=== PATIENT | female | born 1945 | race Hispanic/Latino ===

== ENCOUNTER 2020-03-08 21:54 | Inpatient (IN) | payer MEDICARE, MEDICAID, OTHER ==
[~2020-03-08 21:54] MED LIST: Iopamidol 370 76% 100 ML VIAL ONE
[2020-03-08] MEDS ORDERED: Dexamethasone 10 MG/ML VIAL ONE (22:11)
[2020-03-08] MEDS ORDERED: Aspirin 325 MG TAB ONE (22:11)
[2020-03-08] MEDS ORDERED: cefTRIAXone\\ROCEPHIN 1 GM VIAL ONE (22:11)
[2020-03-08] MEDS ORDERED: Azithromycin 500 MG VIAL ONE (22:11)
[2020-03-08] MEDS ORDERED: Acetaminophen 500 MG TAB ONE (22:11)
[2020-03-08 22:39] LABS: #Eosinphils 0.1 thou/uL (0.0-0.7); #Lymphocytes 0.5 thou/uL (1.20-3.40); #Monocytes 0.6 thou/uL (0.11-0.59); #Neutrophils 6.8 thou/uL (1.40-6.50); %Basophils 0.1 % (0.0-1.0); %Eosinophils 1.2 % (0.0-10.0); %Lymphocytes 6.4 % (21.0-51.0); %Monocytes 7.3 % (0.0-10.0); %Neutrophils 85.1 % (42.0-75.0); Hemoglobin 13.9 g/dL (12.0-16.0); Mean Corpuscular HGB CONC 31.2 g/dL (32.0-36.0); Mean Corpuscular Hemoglobin 30.2 pg (27.0-31.0); Mean Corpuscular Volume 96.7 fL (78.0-98.0); Mean Platelet Volume 9.7 fL (7.4-10.4); Platelet Count 211 thou/uL (130-400); RBC Distribution Width 12.6 % (11.5-14.5)
[2020-03-08] MEDS ORDERED: Albuterol 200 PUFF (6.7GM INHALER) ONE (22:41)
[2020-03-08 23:14] LABS: ALT (SGPT) 18 U/L (8-55); AST (SGOT) 38 U/L (5-34); Albumin 3.5 g/dL (3.4-4.8); Alkaline Phosphatase 82 U/L (40-110); Anion Gap 15 mmol/L (10-20); BUN (Urea Nitrogen) 16 mg/dL (9.8-20.1); Bilirubin, Total 0.6 mg/dL (0.2-1.2); CK (CPK) 38 U/L (29-168); Calc. Creatinine Clearance 0 mL/min (70-130); Calcium 9.2 mg/dL (7.8-10.44); Carbon Dioxide 27 mmol/L (23-31); Chloride 102 mmol/L (98-107); Estimated GFR-MDRD 69; Globulin 4.3 g/dL (2.4-3.5); Glucose 115 mg/dL (83-110); Potassium 4.5 mmol/L (3.5-5.1); Protein, Total 7.8 g/dL (6.0-8.3); Sodium 139 mmol/L (136-145)
[2020-03-09] MEDS ORDERED: Ondansetron PF 4 MG/2 ML Vial IVP PRN (00:27)
[2020-03-09] MEDS ORDERED: HYDROcodone/Acetaminophen 5/325 mg Tablet PO PRN (00:27)
[2020-03-09] MEDS ORDERED: Calcium Carbonate 500 MG ChewTAB PO PRN (00:27)
[2020-03-09] MEDS ORDERED: Ondansetron ODT 4 MG TAB PO PRN (00:27)
[2020-03-09] MEDS ORDERED: Acetaminophen 650 MG Suppository PR PRN (00:27)
--- NOTE | 2020-03-09 00:36 | PDOC.HHP ---
Hospitalist HPI - History of Present Illness dyspnea throat pain History of Present Illness: Case of an 74y/o female with pmhx of bronchial asthma, hypercholesterolemia, hypertension and cad who comes to hospital due to worsening dypsnea and cough. patient refers she was on her usual state of health until february 24 when she started with cough fever and dyspnea, she was evaluated by and ED and sent home. she was informed it was positive 2 days later. patient states that since then she feels she has been worsening and now presents with worsening dyspnea. also complains of headache, throat pain general malaise and fever. Hospitalist ROS - Review of Systems All other systems reviewed; all pertinent +/- noted in HPI/Subj Hospitalist History - Past Surgical History Past Surgical History: reports: Cholecystectomy, Hysterectomy - Family History Family History: reports: diabetes mellitus, hypertension - Social History Smoking Status: Never smoker Alcohol: reports: None Drugs: reports: none Living Situation: With Family - Exam General Appearance: ill appearing Eye: PERRL, anicteric sclera ENT: normocephalic atraumatic, no oropharyngeal lesions Neck: supple, symmetric, no JVD, no thyromegaly Heart: RRR, no murmur, no gallops, no rubs Respiratory: CTAB, no wheezes, no rales, no ronchi Gastrointestinal: soft, non-tender, non-distended, normal bowel sounds Extremities: no cyanosis, no clubbing, no edema Skin: normal turgor, no lesions, no rashes Neurological: cranial nerve grossly intact, normal sensation to touch, no weakness Musculoskeletal: normal tone, normal strength, no muscle wasting Psychiatric: normal affect, normal behavior, A&O x 3 Hospitalist Results - Labs Result Diagrams: 03/08/20 22:24 03/09/20 00:50 Lab results: WBC 8.0 thou/uL (4.8-10.8) 03/08/20 22:24 Hgb 13.9 g/dL (12.0-16.0) 03/08/20 22:24 Hct 44.5 % (36.0-47.0) 03/08/20 22:24 MCV 96.7 fL (78.0-98.0) 03/08/20 22:24 Plt Count 211 thou/uL (130-400) 03/08/20 22:24 Neutrophils % 85.1 % (42.0-75.0) H 03/08/20 22:24 Sodium 139 mmol/L (136-145) 03/08/20 22:24 Potassium 4.5 mmol/L (3.5-5.1) 03/08/20 22:24 Chloride 102 mmol/L (98-107) 03/08/20 22:24 Carbon Dioxide 27 mmol/L (23-31) 03/08/20 22:24 BUN 16 mg/dL (9.8-20.1) 03/08/20 22:24 Creatinine 0.81 mg/dL (0.6-1.1) 03/08/20 22:24 Glucose 115 mg/dL (83-110) H 03/08/20 22:24 Lactic Acid 1.5 mmol/L (0.5-2.2) 03/08/20 22:24 Calcium 9.2 mg/dL (7.8-10.44) 03/08/20 22:24 Total Bilirubin 0.6 mg/dL (0.2-1.2) 03/08/20 22:24 AST 38 U/L (5-34) H 03/08/20 22:24 ALT 18 U/L (8-55) 03/08/20 22:24 Alkaline Phosphatase 82 U/L (40-110) 03/08/20 22:24 Creatine Kinase 38 U/L (29-168) 03/08/20 22:24 Troponin I 0.022 ng/mL (< 0.028) 03/08/20 22:24 B-Natriuretic Peptide 110.9 pg/mL (0-100) H 03/08/20 22:24 Serum Total Protein 7.8 g/dL (6.0-8.3) 03/08/20 22:24 Albumin 3.5 g/dL (3.4-4.8) 03/08/20 22:24 Hospitalist H&P A/P - Problem (1) COVID-19 Code(s): U07.1 - COVID-19 Status: Acute (2) Respiratory failure with hypoxia Code(s): J96.91 - RESPIRATORY FAILURE, UNSPECIFIED WITH HYPOXIA Status: Acute (3) Diabetes Code(s): E11.9 - TYPE 2 DIABETES MELLITUS WITHOUT COMPLICATIONS Status: Acute (4) CAD (coronary artery disease) Code(s): I25.10 - ATHSCL HEART DISEASE OF [place] CORONARY ARTERY W/O ANG PCTRS Status: Acute (5) HTN (hypertension) Code(s): I10 - ESSENTIAL (PRIMARY) HYPERTENSION Status: Acute - Plan Plan: Case of an 74y/o female with the stated pmhx who comes with covid 19 and hypoxia covid 19 - tested positive a few days ago - on rocephin + azithromycin - dexamethazone 6mg ivd respiratory failure hypoxia - 02 supplementation dm acc + ss adjust as necessary htn / cad / hld - continue home meds
[2020-03-09 01:15] LABS: ALT (SGPT) 14 U/L (8-55); AST (SGOT) 22 U/L (5-34); Albumin 3.5 g/dL (3.4-4.8); Alkaline Phosphatase 76 U/L (40-110); Anion Gap 13 mmol/L (10-20); BUN (Urea Nitrogen) 13 mg/dL (9.8-20.1); Bilirubin, Total 0.5 mg/dL (0.2-1.2); Calc. Creatinine Clearance 0 mL/min (70-130); Calcium 9.1 mg/dL (7.8-10.44); Carbon Dioxide 27 mmol/L (23-31); Chloride 103 mmol/L (98-107); Estimated GFR-MDRD 78; Glucose 141 mg/dL (83-110); Potassium 3.8 mmol/L (3.5-5.1); Protein, Total 7.5 g/dL (6.0-8.3); Sodium 139 mmol/L (136-145)
[2020-03-09 01:20] VITALS: BMI 37.1
[2020-03-09] MEDS: Sodium Chloride 0.9% 1,000 ML IV SCH ×2 (02:15→19:59)
[2020-03-09 05:00] LABS: Band 18 % (5-11); Hemoglobin 13.1 g/dL (12.0-16.0); Lymphocytes 3 % (21-51); MDiff Complete? YES; Mean Corpuscular HGB CONC 31.9 g/dL (32.0-36.0); Mean Corpuscular Hemoglobin 30.6 pg (27.0-31.0); Mean Corpuscular Volume 96.1 fL (78.0-98.0); Mean Platelet Volume 9.1 fL (7.4-10.4); Neutrophil 79 % (42-75); Platelet Count 201 thou/uL (130-400); Platelet Morphology Comment Appears Adequate; RBC Distribution Width 12.4 % (11.5-14.5); RBC Morphology Normal; Red Blood Cell (RBC) Count 4.27 mill/uL (4.20-5.40); White Blood Cell (WBC) Count 6.7 thou/uL (4.8-10.8)
[2020-03-09 05:17] LABS: ALT (SGPT) 13 U/L (8-55); AST (SGOT) 18 U/L (5-34); Albumin 3.2 g/dL (3.4-4.8); Alkaline Phosphatase 70 U/L (40-110); Anion Gap 11 mmol/L (10-20); BUN (Urea Nitrogen) 13 mg/dL (9.8-20.1); Bilirubin, Total 0.4 mg/dL (0.2-1.2); CRP (Inflammatory) 25.29 mg/dL (= or < 0.5); Calc. Creatinine Clearance 70 mL/min (70-130); Calcium 9.1 mg/dL (7.8-10.44); Carbon Dioxide 28 mmol/L (23-31); Chloride 106 mmol/L (98-107); Estimated GFR-MDRD 78; Globulin 3.6 g/dL (2.4-3.5); Glucose 168 mg/dL (83-110); Protein, Total 6.8 g/dL (6.0-8.3); Sodium 141 mmol/L (136-145)
--- NOTE | 2020-03-09 08:46 | CT ---
CT HEAD WITHOUT CONTRAST: Date: 03/08/2020 INDICATION: Headache. Comparison made to prior head CT from 2015 on this patient. FINDINGS: No evidence of intracranial mass or hemorrhage. Ventricles have normal size and position. Mild chroni c ischemic white matter changes appear stable from prior exam. Sinuses and mastoids are clear. IMPRESSION: No acute process. POS: AGW
[2020-03-09] MEDS: Dexamethasone 4 mg/ml Vial SLOW IVP SCH (08:50)
--- NOTE | 2020-03-09 08:50 | CT ---
CTA CHEST: Date: 03/08/2020 Axial tomograms obtained following a pulmonary angio protocol with multiplanar reconstruction and 3D postprocessing. INDICATION: Shortness of breath. Positive COVID. Chest pain. FINDINGS: Pulmonary arteries show adequate enhancement. No evidence of pulmonary embolus identified. Mediastinum unremarkable. Thoracic aorta is unremarkable. Nonspecific mediastinal and hilar lymph nod es are seen. The lung mooney show scattered peripheral ground-glass infiltrates bilaterally consistent with COVID pneumonia. More confluent infiltrate in the posterior right lung base. Images through the upper abdomen unremarkable. IMPRESSION: 1. No evidence of pulmonary embolus. 2. There are bilateral peripheral hazy ground-glass infiltrates seen throughout both lungs consisten t with COVID pneumonia. POS: AGW
[2020-03-09] MEDS: Enoxaparin Sodium 40 MG/0.4 ML SYRINGE SC SCH (08:51)
[2020-03-09 12:23] LABS: SARS-CoV-2 MS2 Positive; SARS-CoV-2 N Gene Positive; SARS-CoV-2 S Gene Positive; SARS-CoV-2 by NAA DETECTED (NotDetected); SARS-CoV-2 orf1ab Positive
[2020-03-09] MEDS: cefTRIAXone\\ROCEPHIN 2 GM in Sodium Chloride 0.9% 100 ML IVPB SCH (19:56)
[2020-03-09] MEDS: Acetaminophen 325 MG TAB PO PRN (19:57)
[2020-03-09] MEDS: Azithromycin 500 MG in Sodium Chloride 0.9% 250 ML 250 ML IVPB SCH (20:58)
[2020-03-09] MEDS ORDERED: Carvedilol 3.125 MG TAB PO SCH (21:00)
[2020-03-10] MEDS: Carvedilol 3.125 MG TAB PO SCH ×2 (07:28→17:53)
[2020-03-10] MEDS: Aspirin 81 mg Enteric Coated Tablet PO SCH (07:28)
[2020-03-10] MEDS: Enoxaparin Sodium 40 MG/0.4 ML SYRINGE SC SCH (07:28)
[2020-03-10] MEDS: Amlodipine 5 MG TAB PO SCH (07:29)
[2020-03-10] MEDS: Lisinopril 20 MG TAB PO SCH (07:29)
[2020-03-10] MEDS: Dexamethasone 4 mg/ml Vial SLOW IVP SCH (07:29)
--- NOTE | 2020-03-10 11:13 | PDOC.HOSPP ---
- Subjective Encounter Date: 03/10/20 Encounter Time: 11:10 Subjective: f/u for COVID-19 and hypoxia on current O2 @ 2L/min NC. Receiving Zithromax/ Rocephin/Dexamethasone. - Objective Vital Signs & Weight: Vital Signs (12 hours) Temp Pulse Resp BP Pulse Ox 03/10/20 07:49 155/72 H 03/10/20 07:48 98.7 F 66 24 H 178/82 H 93 L 03/10/20 04:20 98.5 F 59 L 20 147/75 H 94 L 03/09/20 23:49 98.4 F 65 18 156/73 H 94 L Weight Admit Weight 143 lb Weight 143 lb I&O: 03/09/20 03/10/20 03/11/20 06:59 06:59 06:59 Intake Total 350 2170 Output Total 750 Balance 350 1420 Result Diagrams: 03/09/20 04:24 03/09/20 04:24 Additional Labs: Microbiology 03/08/20 22:24 Venous blood - Right Arm Blood Culture - Preliminary Specimen has been received and culture in progress. No Growth to date. 03/08/20 22:24 Venous blood - Left Arm Blood Culture - Preliminary Specimen has been received and culture in progress. No Growth to date. Laboratory Tests 03/08/20 03/08/20 03/08/20 22:24 22:24 22:58 D-Dimer Lactic Acid 1.5 Lactate Dehydrogenase C-Reactive Protein B-Natriuretic Peptide 110.9 H Procalcitonin COVID-19 PCR DETECTED A* 03/09/20 03/09/20 03/09/20 04:24 04:24 04:24 D-Dimer Lactic Acid Lactate Dehydrogenase 294 H C-Reactive Protein 25.29 H B-Natriuretic Peptide Procalcitonin 0.07 COVID-19 PCR 03/09/20 04:24 D-Dimer 0.89 H Lactic Acid Lactate Dehydrogenase C-Reactive Protein B-Natriuretic Peptide Procalcitonin COVID-19 PCR Radiology Reviewed by me: Yes (CTA chest - bilat infiltrates, no PE) EKG Reviewed by me: Yes (Tele - SR) Hospitalist ROS - Medication Medications: Active Medications Generic Name Dose Route Start Last Admin Trade Name Freq PRN Reason Stop Dose Admin Acetaminophen 650 mg 03/09/20 00:27 03/09/20 19:57 Tylenol PO 650 mg Q4H PRN Administration Headache/Fever/Mild Pain (1-3) Amlodipine Besylate 5 mg 03/10/20 09:00 03/10/20 07:29 Norvasc PO 5 mg DAILY JONATHAN Administration Aspirin 81 mg 03/10/20 09:00 03/10/20 07:28 Ecotrin PO 81 mg DAILY JONATHAN Administration Carvedilol 3.125 mg 03/10/20 08:00 03/10/20 07:28 Coreg PO 3.125 mg BID-WM JONATHAN Administration Dexamethasone 6 mg 03/09/20 09:00 03/10/20 07:29 Decadron SLOW IVP 6 mg DAILY JONATHAN Administration Enoxaparin Sodium 40 mg 03/09/20 09:00 03/10/20 07:28 Lovenox SC 40 mg 0900 JONATHAN Administration Azithromycin 500 mg/ Sodium 250 mls @ 250 mls/hr 03/09/20 22:00 03/09/20 20: 58 Chloride IVPB 250 mls Q24HR JONATHAN Administration Ceftriaxone Sodium 2 gm/ 100 mls @ 200 mls/hr 03/09/20 21:00 03/09/20 19:56 Sodium Chloride IVPB 100 mls Q24HR JONATHAN Administration Sodium Chloride 1,000 mls @ 50 mls/hr 03/09/20 00:30 03/09/20 19:59 Normal Saline 0.9% IV 1,000 mls .Q20H JONATHAN Administration Lisinopril 20 mg 03/10/20 09:00 03/10/20 07:29 Zestril PO 20 mg DAILY JONATHAN Administration - Exam General Appearance: NAD, awake alert Eye: PERRL, anicteric sclera ENT: normocephalic atraumatic, no oropharyngeal lesions Neck: supple, symmetric, no JVD, no thyromegaly, no lymphadenopathy Heart: RRR, no murmur, no gallops, no rubs, normal peripheral pulses Heart - other findings: S1, S2 Respiratory: CTAB, no wheezes, no rales, no ronchi, normal chest expansion, tachypneic Gastrointestinal: soft, non-tender, non-distended, normal bowel sounds, no palpable masses Extremities: no cyanosis, no clubbing, no edema Skin: normal turgor, no lesions Neurological: cranial nerve grossly intact, no new deficit Musculoskeletal: normal tone, generalized weakness Psychiatric: normal affect, A&O x 3 Hosp A/P (1) COVID-19 Code(s): U07.1 - COVID-19 Status: Acute Plan: Continue Zithromax/Rocephin/Dexamethasone, add Albuterol, O2 @ 2L/min NC (2) Acute respiratory failure with hypoxia Code(s): J96.01 - ACUTE RESPIRATORY FAILURE WITH HYPOXIA Status: Acute Plan: Continue O2 and wean as clinically indicated (3) HTN (hypertension) Code(s): I10 - ESSENTIAL (PRIMARY) HYPERTENSION Status: Chronic Qualifiers: Hypertension type: essential hypertension Qualified Code(s): I10 - Essential (primary) hypertension Plan: Continue current BP regimen, serial BP monitoring (4) CAD (coronary artery disease) Code(s): I25.10 - ATHSCL HEART DISEASE OF [place] CORONARY ARTERY W/O ANG PCTRS Status: Chronic Plan: Continue ASA/Lipitor - Plan continue antibiotics, social media designer, respiratory therapy, out of bed/ambulate , DVT proph w/SCDs Continue current supportive mgmt Continue Zithromax/Rocephin/Dexamethasone Add Albuterol MDI Resp isolation protocol Transfer to medical floor AM lab: CRP, D-dimer, Ferritin
[2020-03-10] MEDS ORDERED: Albuterol 200 PUFF (6.7GM INHALER) INH SCH (11:15)
[2020-03-10] MEDS ORDERED: Albuterol 200 PUFF (6.7GM INHALER) INH PRN (15:00)
[2020-03-10] MEDS: Sodium Chloride 0.9% 1,000 ML IV SCH (18:27)
[2020-03-10] MEDS: Acetaminophen 325 MG TAB PO PRN (18:28)
[2020-03-10] MEDS: cefTRIAXone\\ROCEPHIN 2 GM in Sodium Chloride 0.9% 100 ML IVPB SCH (22:07)
[2020-03-10] MEDS: Atorvastatin Calcium 20 MG TAB PO SCH (22:10)
[2020-03-10] MEDS: Azithromycin 500 MG in Sodium Chloride 0.9% 250 ML 250 ML IVPB SCH (22:53)
[2020-03-11] MEDS ORDERED: Cepastat Lozenges 1 LOZ PO PRN (08:13)
[2020-03-11] MEDS ORDERED: Diabetic Tussin 200 MG/10 ML UDCUP PO PRN (08:13)
[2020-03-11] MEDS ORDERED: Loratadine 10 MG TAB PO PRN (08:13)
[2020-03-11] MEDS ORDERED: Benzonatate 100 MG CAP PO PRN (08:13)
[2020-03-11] MEDS ORDERED: Zolpidem Tartrate 5 MG TAB PO PRN (08:13)
[2020-03-11] MEDS ORDERED: hydrALAZINE 20 MG/ML VIAL SLOW IVP PRN (08:13)
[2020-03-11] MEDS ORDERED: Senokot S 8.6-50 MG TAB PO PRN (08:13)
[2020-03-11] MEDS ORDERED: Sodium Chloride 0.65% Nasal 44 ML BOT EA NARE PRN (08:13)
[2020-03-11] MEDS ORDERED: Loperamide HCl 2 MG CAP PO PRN (08:13)
[2020-03-11] MEDS ORDERED: Bisacodyl 10 MG SUPP PR PRN (08:13)
[2020-03-11] MEDS: Lisinopril 20 MG TAB PO SCH (08:28)
[2020-03-11] MEDS: Amlodipine 5 MG TAB PO SCH (08:28)
[2020-03-11] MEDS: Aspirin 81 mg Enteric Coated Tablet PO SCH (08:28)
[2020-03-11] MEDS: Carvedilol 3.125 MG TAB PO SCH ×2 (08:28→16:30)
[2020-03-11] MEDS: Enoxaparin Sodium 40 MG/0.4 ML SYRINGE SC SCH (08:29)
[2020-03-11] MEDS ORDERED: Dexamethasone 4 MG TAB PO SCH (08:30)
--- NOTE | 2020-03-11 11:42 | PDOC.HOSPP ---
- Subjective Encounter Date: 03/11/20 Encounter Time: 08:40 Subjective: Patient seen and examined. No new complaints. No overnight events, patient is still requiring oxygen, with exertion patient oxygen saturation drops - Objective Vital Signs & Weight: Vital Signs (12 hours) Temp Pulse Resp BP Pulse Ox 03/11/20 11:18 98.5 F 18 160/78 H 93 L 03/11/20 08:29 98.3 F 67 18 169/83 H 97 03/11/20 08:28 97 03/11/20 05:55 98.7 F 65 20 174/55 H 99 03/10/20 23:57 98.7 F 61 20 161/88 H 96 Weight Admit Weight 143 lb Weight 143 lb I&O: 03/10/20 03/11/20 03/12/20 06:59 06:59 06:59 Intake Total 2170 830 Output Total 750 1150 Balance 1420 -320 Result Diagrams: 03/09/20 04:24 03/09/20 04:24 Radiology Reviewed by me: Yes EKG Reviewed by me: Yes Hospitalist ROS - Review of Systems Respiratory: reports: SOB with excertion. denies: cough, dry, shortness of breath, hemoptysis, pleuritic pain, sputum, wheezing, other Cardiovascular: denies: chest pain, palpitations, orthopnea, paroxysmal noc. dyspnea, edema, light headedness, other Gastrointestinal: denies: nausea, vomiting, abdominal pain, diarrhea, constipation, melena, hematochezia, other Genitourinary: denies: dysuria, frequency, incontinence, hematuria, retention, other Musculoskeletal: denies: neck pain, shoulder pain, arm pain, back pain, hand pain, leg pain, foot pain, other - Medication Medications: Active Medications Generic Name Dose Route Start Last Admin Trade Name Freq PRN Reason Stop Dose Admin Acetaminophen 650 mg 03/09/20 00:27 03/10/20 18:28 Tylenol PO 650 mg Q4H PRN Administration Headache/Fever/Mild Pain (1-3) Amlodipine Besylate 5 mg 03/10/20 09:00 03/11/20 08:28 Norvasc PO 5 mg DAILY JONATHAN Administration Aspirin 81 mg 03/10/20 09:00 03/11/20 08:28 Ecotrin PO 81 mg DAILY JONATHAN Administration Atorvastatin Calcium 20 mg 03/10/20 21:00 03/10/20 22:10 Lipitor PO 20 mg HS JONATHAN Administration Carvedilol 3.125 mg 03/10/20 08:00 03/11/20 08:28 Coreg PO 3.125 mg BID-WM JONATHAN Administration Enoxaparin Sodium 40 mg 03/09/20 09:00 03/11/20 08:29 Lovenox SC 40 mg 0900 JONATHAN Administration Azithromycin 500 mg/ Sodium 250 mls @ 250 mls/hr 03/09/20 22:00 03/10/20 22: 53 Chloride IVPB 250 mls Q24HR JONATHAN Administration Ceftriaxone Sodium 2 gm/ 100 mls @ 200 mls/hr 03/09/20 21:00 03/10/20 22:07 Sodium Chloride IVPB 100 mls Q24HR JONATHAN Administration Lisinopril 20 mg 03/10/20 09:00 03/11/20 08:28 Zestril PO 20 mg DAILY JONATHAN Administration Sodium Chloride 10 ml 03/11/20 09:00 03/11/20 08:29 Flush - Normal Saline IVF 10 ml Q12HR JONATHAN Administration - Exam General Appearance: NAD, awake alert Eye: PERRL, anicteric sclera ENT: normocephalic atraumatic, no oropharyngeal lesions Neck: supple, symmetric, no JVD, no thyromegaly Heart: RRR, no murmur, no gallops, no rubs Respiratory: no wheezes, no rales Gastrointestinal: soft, non-tender, non-distended, normal bowel sounds Extremities: no cyanosis, no clubbing Skin: normal turgor, no lesions Neurological: no focal deficits Musculoskeletal: normal tone, normal strength Psychiatric: normal affect, normal behavior Hosp A/P (1) Acute respiratory failure with hypoxia Code(s): J96.01 - ACUTE RESPIRATORY FAILURE WITH HYPOXIA Status: Acute (2) COVID-19 Code(s): U07.1 - COVID-19 Status: Acute (3) Diabetes Code(s): E11.9 - TYPE 2 DIABETES MELLITUS WITHOUT COMPLICATIONS Status: Chronic (4) CAD (coronary artery disease) Code(s): I25.10 - ATHSCL HEART DISEASE OF [place] CORONARY ARTERY W/O ANG PCTRS Status: Chronic (5) HTN (hypertension) Code(s): I10 - ESSENTIAL (PRIMARY) HYPERTENSION Status: Chronic Qualifiers: Hypertension type: essential hypertension Qualified Code(s): I10 - Essential (primary) hypertension - Plan old records reviewed/req, continue antibiotics, respiratory therapy Assessment Acute respiratory failure with hypoxia due to COVID-19 infection Acute respiratory disease due to COVID-19 infection Viral pneumonia due to COVID-19 virus Obesity with BMI 37 Plan Continue Decadron and today we will change to p.o. Medication reviewed and continue provide symptomatic care Vitamin supplementation Continue empiric antibiotic therapy Discontinue IV fluid today Wean off oxygen as tolerated and if patient still needs oxygen and will consider arrangement of oxygen upon discharge at home if possible.
[2020-03-11] MEDS: Atorvastatin Calcium 20 MG TAB PO SCH (19:39)
[2020-03-11] MEDS: cefTRIAXone\\ROCEPHIN 2 GM in Sodium Chloride 0.9% 100 ML IVPB SCH (19:39)
[2020-03-11] MEDS: Azithromycin 500 MG in Sodium Chloride 0.9% 250 ML 250 ML IVPB SCH (19:41)
[2020-03-12] MEDS: Enoxaparin Sodium 40 MG/0.4 ML SYRINGE SC SCH (08:30)
[2020-03-12] MEDS: Lisinopril 20 MG TAB PO SCH (08:30)
[2020-03-12] MEDS: Carvedilol 3.125 MG TAB PO SCH ×2 (08:31→16:54)
[2020-03-12] MEDS: Dexamethasone 4 MG TAB PO SCH (08:31)
[2020-03-12] MEDS: Amlodipine 5 MG TAB PO SCH (08:31)
[2020-03-12] MEDS: Aspirin 81 mg Enteric Coated Tablet PO SCH (08:31)
--- NOTE | 2020-03-12 15:53 | PDOC.HOSPP ---
- Subjective Encounter Date: 03/12/20 Subjective: Reports she is generally feeling a little better. She is eager to try to get back on. She still has some cough. - Objective Vital Signs & Weight: Vital Signs (12 hours) Temp Pulse Resp BP BP Pulse Ox 03/12/20 14:30 98.8 F 60 20 146/78 H 90 L 03/12/20 08:48 98.4 F 62 18 152/80 H 97 03/12/20 08:31 97 03/12/20 04:00 98.2 F 62 18 154/79 H 95 Weight Admit Weight 143 lb Weight 143 lb I&O: 03/11/20 03/12/20 03/13/20 06:59 06:59 06:59 Intake Total 830 1090 Output Total 1150 2300 350 Balance -320 -1210 -350 Result Diagrams: 03/09/20 04:24 03/09/20 04:24 Hospitalist ROS - Medication Medications: Active Medications Generic Name Dose Route Start Last Admin Trade Name Freq PRN Reason Stop Dose Admin Acetaminophen 650 mg 03/09/20 00:27 03/10/20 18:28 Tylenol PO 650 mg Q4H PRN Administration Headache/Fever/Mild Pain (1-3) Amlodipine Besylate 5 mg 03/10/20 09:00 03/12/20 08:31 Norvasc PO 5 mg DAILY JONATHAN Administration Aspirin 81 mg 03/10/20 09:00 03/12/20 08:31 Ecotrin PO 81 mg DAILY JONATHAN Administration Atorvastatin Calcium 20 mg 03/10/20 21:00 03/11/20 19:39 Lipitor PO 20 mg HS JONATHAN Administration Benzonatate 100 mg 03/11/20 08:13 03/11/20 20:15 Tessalon PO 100 mg Q6H PRN Administration Cough Carvedilol 3.125 mg 03/10/20 08:00 03/12/20 08:31 Coreg PO 3.125 mg BID-WM JONATHAN Administration Dexamethasone 6 mg 03/12/20 08:00 03/12/20 08:31 Decadron PO 6 mg QAM-WM JONATHAN Administration Enoxaparin Sodium 40 mg 03/09/20 09:00 03/12/20 08:30 Lovenox SC 40 mg 0900 JONATHAN Administration Hydralazine HCl 10 mg 03/11/20 08:13 03/11/20 20:03 Apresoline SLOW IVP 10 mg Q4H PRN Administration SBP > 180 and HR < 70 Lisinopril 20 mg 03/10/20 09:00 03/12/20 08:30 Zestril PO 20 mg DAILY JONATHAN Administration Senna/Docusate Sodium 2 tab 03/11/20 08:13 03/12/20 10:40 Senokot S PO 2 tab BID PRN Administration Constipation Sodium Chloride 10 ml 03/11/20 09:00 03/12/20 08:31 Flush - Normal Saline IVF 10 ml Q12HR JONATHAN Administration - Exam General Appearance: NAD, awake alert Heart: RRR, no murmur, no gallops, no rubs, normal peripheral pulses Respiratory: rales (Scattered bilateral) Gastrointestinal: soft, non-tender, non-distended, normal bowel sounds, no palpable masses, no hepatomegaly, no splenomegaly, no bruit Extremities: no cyanosis, no clubbing, no edema Skin: normal turgor Neurological: cranial nerve grossly intact, normal sensation to touch, no weakness, no focal deficits, no new deficit Musculoskeletal: normal tone Psychiatric: normal affect, normal behavior, A&O x 3 Hosp A/P (1) Hyperlipidemia Code(s): E78.5 - HYPERLIPIDEMIA, UNSPECIFIED Status: Acute (2) COVID-19 Code(s): U07.1 - COVID-19 Status: Acute (3) Diabetes Code(s): E11.9 - TYPE 2 DIABETES MELLITUS WITHOUT COMPLICATIONS Status: Chronic (4) CAD (coronary artery disease) Code(s): I25.10 - ATHSCL HEART DISEASE OF [place] CORONARY ARTERY W/O ANG PCTRS Status: Chronic (5) HTN (hypertension) Code(s): I10 - ESSENTIAL (PRIMARY) HYPERTENSION Status: Chronic Qualifiers: Hypertension type: essential hypertension Qualified Code(s): I10 - Essential (primary) hypertension (6) Acute respiratory failure with hypoxia Code(s): J96.01 - ACUTE RESPIRATORY FAILURE WITH HYPOXIA Status: Acute - Plan DVT proph w/lovenox, GI proph COVID-19 infection: Continue Decadron and supplemental oxygen. Patient is outside the window for Remdesivir. Appears to be stable. Subjectively slightly better. Acute hypoxic respiratory failure: Continue supplemental oxygen. Currently on 3 L. If we can safely get her to 2 L would consider home oxygen. Diabetes mellitus: Patient has some history of diabetes. So far her lab draws indicate relatively well-controlled blood sugars. She is on no medications. I will order some Accu -Cheks. If they remain well controlled we will be able to discontinue those. Coronary artery disease: Continue aspirin, statin, Coreg Hypertension: Continue home dose of amlodipine, lisinopril, Coreg Hyperlipidemia: Continue atorvastatin
[2020-03-12] MEDS: Atorvastatin Calcium 20 MG TAB PO SCH (20:26)
[2020-03-13] MEDS: Lisinopril 20 MG TAB PO SCH (08:14)
[2020-03-13] MEDS: Enoxaparin Sodium 40 MG/0.4 ML SYRINGE SC SCH (08:14)
[2020-03-13] MEDS: Aspirin 81 mg Enteric Coated Tablet PO SCH (08:14)
[2020-03-13] MEDS: Amlodipine 5 MG TAB PO SCH (08:14)
[2020-03-13] MEDS: Carvedilol 3.125 MG TAB PO SCH (08:15)
[2020-03-13] MEDS: Dexamethasone 4 MG TAB PO SCH (08:15)
[2020-03-13] MEDS ORDERED: Amlodipine 5 MG TAB PO SCH ×2 (09:01→09:15)
[2020-03-13 09:15] VITALS: TEMP 98.3
[2020-03-13 09:44] VITALS: BP 181/98
[2020-03-14] MEDS ORDERED: Amlodipine 10 MG TAB PO SCH (09:00)
== END 2020-03-13 16:36 | disposition home or self-care (01) | DRG 177 ==
LOC: ERS 21:54 → 2SW 03-09 00:20 → T4-A 03-10 20:56
PROVIDERS: ADMIT Internal Medicine; ATTEND Internal Medicine
PROC: 8E0ZXY6 Isolation (ICD-10-PCS; principal; 2020-03-09)
DX: U07.1 COVID-19 (principal); J96.01 Acute respiratory failure with hypoxia; J12.89 Other viral pneumonia; I10 Essential (primary) hypertension; I25.10 Atherosclerotic heart disease of native coronary artery without angina pectoris; E11.9 Type 2 diabetes mellitus without complications; J45.909 Unspecified asthma, uncomplicated; E78.5 Hyperlipidemia, unspecified; E66.9 Obesity, unspecified; Z90.49 Acquired absence of other specified parts of digestive tract; Z90.710 Acquired absence of both cervix and uterus; Z68.37 Body mass index [BMI] 37.0-37.9, adult
CPT/HCPCS: 36415; 36416; 70450; 71275; 80053; 82550; 82728; 83605; 83615; 83880; 84145; 84484; 85007; 85025; 85027; 85379; 86140; 87040; 87635; 93005; 96365; 96366; 96368; 96375; J0360; J0456; J0696; J1100; J1650; J3490; J7050; J8540; Q9967; U0003